=== PATIENT | male | born 1980 | race Caucasian/White ===

== ENCOUNTER 2019-03-16 18:38 | Emergency (ER) | payer OTHER ==
[~2019-03-16] VITALS: Ht 170.2 cm; Wt 83.0 kg
--- OUTSIDE RECORDS SUMMARY | 2019-03-16 18:44 | XMS REPORT | Continuity of Care Document ---
Author Organization Unknown Address Unknown Allergies There is no data. Medications There is no data. Problems There is no data. Procedures There is no data. Results There is no data. Encounters ACCT No. Visit Date/Time Discharge Status Pt. Type Provider Facility Loc./Unit Complaint [id number] 03/09/2019 16:40:00 03/09/2019 23:59:59 CLS Outpatient BRANDON CALLOWAY [facility] WALK IN [facility]
[2019-03-16] MEDS ORDERED: NS IV 1000 ML 1,000 ML IV STA (19:08)
--- NOTE | 2019-03-16 19:08 | ED Integumentary General ---
General Chief Complaint: Skin/Wound Problems Stated Complaint: RASH ON BILAT ARMS Source: patient History of Present Illness Date Seen by Provider: Mar 16, 2019 Time Seen by Provider: 19:08 Initial Comments 39-year-old male presenting with complaints of rash and redness to bilateral arms. He has an area to his right forearm that is being treated with Bactrim from urgent care. This was not improving and was still itching at times. Initially they thought that it might be from a bug bite. He has been on the Bactrim for a week now. It has not gotten any significant improvement since then. He denies any fever or chills. He has some itching and swelling to the area on his right forearm. He feels that it did not get significantly improved w ith the medication. He was having no redness streaking up his arm from it. He has no significant pain with it. He has a small area to his left upper arm that is also red than slightly swollen. That area is itching. Again there is no streaking from it. He states he has no primary provider. Allergies and Home Medications Allergies Coded Allergies: Penicillins (Verified Allergy, Unknown, 03/16/19) amoxicillin (Verified Allergy, Unknown, 03/16/19) Home Medications Prednisone 20 Mg Tab, 40 MG PO DAILY Prescribed by: DRAKE MARIN on 03/16/19 1120 Patient Home Medication List Home Medication List Reviewed: Yes Review of Systems Review of Systems Constitutional: No chills; fever (subjective today) EENTM: no symptoms reported Respiratory: no symptoms reported Cardiovascular: no symptoms reported Gastrointestinal: no symptoms reported Genitourinary: no symptoms reported Musculoskeletal: see HPI Skin: see HPI Psychiatric/Neurological: No Symptoms Reported Past Gefqjet-Ghglsv-Bjakrr Hx Past Med/Social Hx: Reviewed Nursing Past Med/Soc Hx Patient Social History Recent Foreign Travel: No Contact w/Someone Who Travel: No Physical Exam Vital Signs Vital Signs - First Documented 03/16/19 18:46 Temp 99.7 Pulse 107 Resp 21 B/P (MAP) 141/71 (94) Pulse Ox 97 O2 Delivery Room Air Capillary Refill : General Appearance: WD/WN, no apparent distress HEENT: PERRL/EOMI, pharynx normal Neck: non-tender, full range of motion, supple, normal inspection Cardiovascular: normal peripheral pulses, regular rate, rhythm Respiratory: chest non-tender, lungs clear, normal breath sounds, no respiratory distress, no accessory muscle use Gastrointestinal: normal bowel sounds, non tender, soft, no pulsatile mass Extremities: normal range of motion, non-tender, no pedal edema, no calf tenderness, normal capillary refill Neurologic/Psychiatric: alert, normal mood/affect, oriented x 3 Skin: warm/dry, other (area of redness and mild swelling to right forearm without induration, fluctuance or streaking. red and swollen area to left upper arm appears to be a bug bite with inflammation) Progress/Results/Core Measures Results/Orders Lab Results Laboratory Tests Test 03/16/19 19:43 03/16/19 21:04 Range/Units White Blood Count 3.8 L 4.3-11.0 10^3/uL Red Blood Count 4.43 4.35-5.85 10^6/uL Hemoglobin 13.6 13.3-17.7 G/DL Hematocrit 40 40-54 % Mean Corpuscular Volume 90 80-99 FL Mean Corpuscular Hemoglobin 31 25-34 PG Mean Corpuscular Hemoglobin Concent 34 32-36 G/DL Red Cell Distribution Width 12.4 10.0-14.5 % Platelet Count 248 130-400 10^3/uL Mean Platelet Volume 9.6 7.4-10.4 FL Neutrophils (%) (Auto) 40 L 42-75 % Lymphocytes (%) (Auto) 27 12-44 % Monocytes (%) (Auto) 15 H 0-12 % Eosinophils (%) (Auto) 19 H 0-10 % Basophils (%) (Auto) 0 0-10 % Neutrophils # (Auto) 1.5 L 1.8-7.8 X 10^3 Lymphocytes # (Auto) 1.0 1.0-4.0 X 10^3 Monocytes # (Auto) 0.6 0.0-1.0 X 10^3 Eosinophils # (Auto) 0.7 H 0.0-0.3 10^3/uL Basophils # (Auto) 0.0 0.0-0.1 10^3/uL Neutrophils % (Manual) 33 % Lymphocytes % (Manual) 25 % Monocytes % (Manual) 11 % Eosinophils % (Manual) 22 % Basophils % (Manual) 0 % Band Neutrophils 9 % Blood Morphology Comment NORMAL Sodium Level 135 135-145 MMOL/L Potassium Level 4.0 3.6-5.0 MMOL/L Chloride Level 96 L 98-107 MMOL/L Carbon Dioxide Level 27 21-32 MMOL/L Anion Gap 12 5-14 MMOL/L Blood Urea Nitrogen 11 7-18 MG/DL Creatinine 1.36 H 0.60-1.30 MG/DL Estimat Glomerular Filtration Rate 58 BUN/Creatinine Ratio 8 Glucose Level 93 70-105 MG/DL Lactic Acid Level 1.09 0.50-2.00 MMOL/L Calcium Level 9.0 8.5-10.1 MG/DL Corrected Calcium 8.6 8.5-10.1 MG/DL Total Bilirubin 0.4 0.1-1.0 MG/DL Aspartate Amino Transf (AST/SGOT) 20 5-34 U/L Alanine Aminotransferase (ALT/SGPT) 16 0-55 U/L Alkaline Phosphatase 84 40-136 U/L Total Protein 7.8 6.4-8.2 GM/DL Albumin 4.5 3.2-4.5 GM/DL Urine Color YELLOW Urine Clarity CLEAR Urine pH 6.0 5-9 Urine Specific Mobile 1.010 L 1.016-1.022 Urine Protein NEGATIVE NEGATIVE Urine Glucose (UA) NEGATIVE NEGATIVE Urine Ketones NEGATIVE NEGATIVE Urine Nitrite NEGATIVE NEGATIVE Urine Bilirubin NEGATIVE NEGATIVE Urine Urobilinogen 0.2 NORMAL MG/DL Urine Leukocyte Esterase NEGATIVE NEGATIVE Urine RBC (Auto) NEGATIVE NEGATIVE Urine RBC NONE /HPF Urine WBC 0-2 /HPF Urine Crystals NONE /LPF Urine Bacteria NONE /HPF Urine Casts NONE /LPF Urine Mucus NEGATIVE /LPF Urine Culture Indicated NO Micro Results Microbiology 03/16/19 Blood Culture - Preliminary, Resulted No growth 03/16/19 Blood Culture - Preliminary, Resulted No growth My Orders Orders - DRAKE MARIN MD Cbc With Automated Diff (03/16/19 19:08) Comprehensive Metabolic Panel (03/16/19 19:08) Blood Culture (03/16/19 19:08) Ua Culture If Indicated (03/16/19 19:08) Ed Iv/Invasive Line Start (03/16/19 19:08) Lactic Acid Analyzer (03/16/19 19:08) Ns Iv 1000 Ml (Sodium Chloride 0.9%) (03/16/19 19:08) Manual Differential (03/16/19 19:43) Methylprednisolone Sod Succ (Solu-Medrol (03/16/19 22:00) Vital Signs/I&O 03/16/19 03/16/19 18:46 22:15 Temp 99.7 99.7 Pulse 107 107 Resp 21 21 B/P (MAP) 141/71 (94) 141/71 (94) Pulse Ox 97 97 O2 Delivery Room Air Room Air Progress Progress Note #1: Progress Note Check labs and evaluate for infection. appears to be more of an allergic reaction than infection, especially since he has no improvement with antibiotics. Progress Note #2: Progress Note Labs are stable without significant abnormality. He has negative lactic acid. will try treating for allergic reaction instead and having him get established with primary.Follow up with clinic or return if not improving Departure Impression Primary Impression: Hypersensitivity reaction Qualified Codes: T78.40XA - Allergy, unspecified, initial encounter Additional Impression: Insect bite Qualified Codes: S50.861D - Insect bite (nonvenomous) of right forearm, subsequent encounter; W57.XXXD - Bitten or stung by nonvenomous insect and other nonvenomous arthropods, subsequent encounter Disposition: 01 HOME, SELF-CARE Condition: Stable Departure-Patient Inst. Decision time for Depature: 22:05 Referrals: NO,LOCAL PHYSICIAN (PCP/Family) Primary Care Physician Patient Instructions: Insect Bites and Stings (DC) Add. Discharge Instructions: Take the steroid to help with inflammation, itching, redness and swelling Use the Antihistamines to help with redness and itching. You could take Benadryl (Diphenhydramine) 25-50 mg every 6 hours as needed for your redness and itching. Establish care with [facility] and Follow up with clinic for continued problems and concerns All discharge instructions reviewed with patient and/or family. Voiced understanding. Scripts Prednisone (Prednisone) 20 Mg Tab 40 MG PO DAILY for 7 Days, #14 TAB 0 Refills Prov: DRAKE MARIN MD 03/16/19 DRAKE MARIN MD Mar 16, 2019 19:08
[2019-03-16 19:58] LABS: BASOPHILS % (AUTO) 0 % (0-10); EOSINOPHILS # (AUTO) 0.7 10^3/uL (0.0-0.3); EOSINOPHILS % (AUTO) 19 % (0-10); HEMATOCRIT 40 % (40-54); HEMOGLOBIN 13.6 G/DL (13.3-17.7); LYMPHOCYTES % (AUTO) 27 % (12-44); MEAN CORPUSCULAR HEMOGLOBIN 31 PG (25-34); MEAN CORPUSCULAR HGB CONC 34 G/DL (32-36); MEAN CORPUSCULAR VOLUME 90 FL (80-99); MEAN PLATELET VOLUME 9.6 FL (7.4-10.4); MONOCYTES # (AUTO) 0.6 X 10^3 (0.0-1.0); MONOCYTES % (AUTO) 15 % (0-12); NEUTROPHILS # (AUTO) 1.5 X 10^3 (1.8-7.8); NEUTROPHILS % (AUTO) 40 % (42-75); PLATELET COUNT 248 10^3/uL (130-400); RED CELL DISTRIBUTION WIDTH 12.4 % (10.0-14.5); WHITE BLOOD COUNT 3.8 10^3/uL (4.3-11.0)
[2019-03-16 20:18] LABS: ALBUMIN 4.5 GM/DL (3.2-4.5); BILIRUBIN,TOTAL 0.4 MG/DL (0.1-1.0); CREATININE SERUM 1.36 MG/DL (0.60-1.30); TOTAL PROTEIN 7.8 GM/DL (6.4-8.2)
[2019-03-16 20:28] LABS: BAND NEUTROPHILS 9 %; BASOPHILS % (MANUAL) 0 %; EOSINOPHILS % (MANUAL) 22 %; LYMPHOCYTES % (MANUAL) 25 %; MONOCYTES % (MANUAL) 11 %; NEUTROPHILS % (MANUAL) 33 %
[2019-03-16 20:29] LABS: RBC MORPH NORMAL
[2019-03-16 21:19] LABS: CLARITY,URINE CLEAR; COLOR,URINE YELLOW
[2019-03-16 21:20] LABS: BILIRUBIN,URINE NEGATIVE (NEGATIVE); GLUCOSE, URINE (UA) NEGATIVE (NEGATIVE); KETONES,URINE NEGATIVE (NEGATIVE); LEUKOCYTE ESTERASE ,URINE NEGATIVE (NEGATIVE); NITRITE,URINE NEGATIVE (NEGATIVE); PROTEIN,URINE NEGATIVE (NEGATIVE); UROBILINOGEN,URINE 0.2 MG/DL (NORMAL); WBC,URINE 0-2 /HPF
[2019-03-16] MEDS ORDERED: methylPREDNISolone 125 MG (Solu-MEDROL) VIAL IVP STA (22:00)
[2019-03-16] MEDS ORDERED: PRD20T PO (22:08)
[2019-03-16 22:15] VITALS: BP 141/71
== END 2019-03-16 22:10 | disposition home or self-care (01) ==
LOC: ER FS 18:41
DX: T78.40XA Allergy, unspecified, initial encounter (principal); S50.861D Insect bite (nonvenomous) of right forearm, subsequent encounter; Z88.0 Allergy status to penicillin; Z88.1 Allergy status to other antibiotic agents; W57.XXXD Bitten or stung by nonvenomous insect and other nonvenomous arthropods, subsequent encounter
CPT/HCPCS: 36415; 80053; 81000; 83605; 85007; 85027; 87040